=== PATIENT | male | born 1950 | race Caucasian/White ===

== ENCOUNTER 2019-06-24 19:29 | Emergency (ER) | payer BC, OTHER ==
[~2019-06-24] VITALS: Ht 170.2 cm; Wt 70.8 kg
[2019-06-24 19:30] VITALS: BP 101/67
[2019-06-24] MEDS ORDERED: LIDOCAINE 1%-EPI 1:100K, 20ML ONE (19:46)
[2019-06-24] MEDS ORDERED: DIPH,PERTUSS(ACELL),TET VAC/PF 0.5 ML IM-VACC ONE ×2 (19:52→20:00)
[2019-06-24] MEDS ORDERED: LIDOCAINE 1%-EPI 1:100K, 20ML INFIL ONE (20:00)
== END 2019-06-24 20:33 | disposition home or self-care (01) ==
LOC: ED 20:16
DX: S61.512A Laceration without foreign body of left wrist, initial encounter (principal); W26.0XXA Contact with knife, initial encounter; Y93.89 Activity, other specified; Y92.090 Kitchen in other non-institutional residence as the place of occurrence of the external cause; Y99.8 Other external cause status
CPT/HCPCS: 12032; 90471; 90715; 99284; J3490